=== PATIENT | male | born 1985 | race Caucasian/White ===

== ENCOUNTER 2022-07-07 12:54 | Emergency (ER) | payer MEDICAID, SELFPAY ==
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
[2022-07-07 13:10] VITALS: BP 110/70; BP 114/65; PULSE 118; PULSE 92; RESP 16; TEMP 36.4; O2SAT 96; O2SAT 98; BMI 32.5
[2022-07-07 13:17] VITALS: BP 115/80; PULSE 89; RESP 20; O2SAT 97
[2022-07-07 13:28] LABS: MANUAL DIFF FLAG NO
[2022-07-07 13:31] LABS: Basophils Percent Auto 0.2 % (0-2); Eosinophils Percent Auto 0.3 % (0-4); Hematocrit 36.5 % (42.0-52.0); Hemoglobin 13.3 g/dl (14.0-18.0); Imm Gran Abs Auto 0.02 X10*3/uL (0.00-0.03); Imm Gran Pct Auto 0.2 % (0.0-0.4); Lymphocytes Percent Auto 20.8 % (20-40); Mean Corpuscular HGB Conc 36.4 g/dl (31.0-36.0); Mean Corpuscular Hemoglobin 30.6 pg (27.0-33.0); Mean Corpuscular Volume 83.9 fL (80.0-98.0); Mean Platelet Volume 9.1 fL (9.4-12.4); Monocytes Absolute Auto 1.1 X10*3/uL (0.1-1.2); Monocytes Percent Auto 11.1 % (2-11); Neutrophils Absolute Auto 6.5 x10*3/uL (2.0-8.3); Neutrophils Percent Auto 67.4 % (45-73); Platelet Count 338 X10*3/uL (160-400); Red Blood Count 4.35 X10*6/uL (4.60-5.80); Red Cell Distribution Width 12.3 % (11.0-16.0); White Blood Count 9.6 X10*3/uL (4.8-10.8)
[2022-07-07 13:52] LABS: Alanine Aminotransferase 42 U/L (0-40); Albumin Level 4.6 g/dL (3.5-5.0); Alkaline Phosphatase 67 U/L (39-117); Anion Gap 22 (12-20); Aspartate Amino Transferase 54 U/L (5-37); Bilirubin Total 1.3 mg/dL (0.0-1.0); Blood Urea Nitrogen 29 mg/dL (9-16); Calcium 9.7 mg/dL (8.4-10.2); Carbon Dioxide 18 mmol/L (22-29); Chloride 96 mmol/L (96-108); Estimated Glomerular Filt Rate > 60; Glucose Random 95 mg/dL (60-115); Lipase 12 U/L (8-78); Magnesium 2.1 mg/dL (1.6-2.6); Potassium 3.7 mmol/L (3.3-5.1); Sodium 132 mmol/L (135-145); Total Protein 8.3 g/dL (6.5-8.0)
[2022-07-07 14:02] LABS: Acetaminophen LAB < 1 mcg/mL (<30); Salicylate < 5.0 mg/dL (15-30)
[2022-07-07 14:03] LABS: Ethanol < 10 mg/dL
[2022-07-07 14:08] LABS: COVID-19 Test Negative (Negative)
[2022-07-07] MEDS: iohexoL 350 MG/ML 100 ML INFUS..BTL IV (14:28)
[2022-07-07] MEDS: Diphth,Pertus(ACell),Tet Adult 0.5 ML SYRINGE IM (14:33)
[2022-07-07] MEDS: 0.9 % Sodium Chloride 1,000 ML 999 ML IV ×5 (15:05→21:43)
--- NOTE | 2022-07-07 15:06 | PC.NURSE ---
Critical CPK 0073. Primary RN Dai aware. SHLOMO Ferrari aware
[2022-07-07 15:56] VITALS: BP 101/65; PULSE 79; RESP 16; TEMP 36.6; O2SAT 99
--- NOTE | 2022-07-07 17:07 | PC.NURSE ---
Addendum entered by Grace Edwards 07/07/22 17:21: PATIENT DID AGREE TO HAVE HIS CPK DRAWN AFTER I GIVE HIM A BAG OF POTATO CHIPS . Original Note: PATIENT REFUSED CPK LAB DRAW CARIE ORELLANA AND SHLOMO INFANTE IS AWARE .
[2022-07-07 17:28] VITALS: BP 101/65; PULSE 79; RESP 16; TEMP 36.6; O2SAT 98
[2022-07-07 17:50] LABS: Alanine Aminotransferase 37 U/L (0-40); Alkaline Phosphatase 62 U/L (39-117); Anion Gap 17 (12-20); Aspartate Amino Transferase 47 U/L (5-37); Blood Urea Nitrogen 24 mg/dL (9-16); Calcium 8.4 mg/dL (8.4-10.2); Carbon Dioxide 19 mmol/L (22-29); Chloride 103 mmol/L (96-108); Creatinine Clr Calc Pharmacy 129.1; Estimated Glomerular Filt Rate > 60; Glucose Random 103 mg/dL (60-115); Potassium 3.8 mmol/L (3.3-5.1); Sodium 135 mmol/L (135-145); Total Protein 7.2 g/dL (6.5-8.0)
--- NOTE | 2022-07-07 18:34 | PC.NURSE ---
PATIENT WAS GIVEN MATT MANDI AND SANDWICHES FOR DINNER.
[2022-07-07 19:53] VITALS: BP 107/61; PULSE 73; RESP 16; TEMP 36.7; O2SAT 98
[2022-07-07 20:08] LABS: Appearance Urine Clear; Color Urine Yellow; Glucose Urine UA Negative (Negative); Leukocyte Esterase Urine Negative (Negative); Nitrite Urine Negative (Negative); Specific Gravity - Urine >= 1.030 (1.005-1.025); Urine Blood Negative (Negative); Urine Ketones 40 mg/dL (Negative); Urine Protein Negative (Neg-Trace)
[2022-07-07 20:22] LABS: Amphetamine Screen Urine POSITIVE (Not Detect); Barbiturates, Urine Not Detected (Not Detect); Benzodiazepines Screen Urine Not Detected (Not Detect); Cannabinoid Screen Urine Not Detected (Not Detect); Cocaine Screen Urine POSITIVE (Not Detect); Fentanyl, urine Not Detected (Not Detect); Opiate Screen Urine Not Detected (Not Detect); Phencyclidine Screen Urine Not Detected (Not Detect)
[2022-07-07 20:59] LABS: Anion Gap 15 (12-20); Blood Urea Nitrogen 21 mg/dL (9-16); Calcium 7.9 mg/dL (8.4-10.2); Carbon Dioxide 20 mmol/L (22-29); Chloride 106 mmol/L (96-108); Creatinine Clr Calc Pharmacy 142.9; Estimated Glomerular Filt Rate > 60; Glucose Random 121 mg/dL (60-115); Sodium 137 mmol/L (135-145)
[2022-07-07 21:50] VITALS: BP 112/70; PULSE 73; RESP 16; TEMP 36.6; O2SAT 98
== END 2022-07-07 22:04 ==
PROVIDERS: Physician Assistant; Emergency Provider Internal Medicine
DX: R10.31 Right lower quadrant pain (principal); M62.82 Rhabdomyolysis; L03.114 Cellulitis of left upper limb; S41.112A Laceration without foreign body of left upper arm, initial encounter; S00.11XA Contusion of right eyelid and periocular area, initial encounter; S30.811A Abrasion of abdominal wall, initial encounter; Y09 Assault by unspecified means; F17.200 Nicotine dependence, unspecified, uncomplicated; Z20.822 Contact with and (suspected) exposure to COVID-19; Y93.9 Activity, unspecified; Y92.9 Unspecified place or not applicable; Y99.9 Unspecified external cause status; F14.90 Cocaine use, unspecified, uncomplicated
CPT/HCPCS: 36415; 70450; 70486; 71260; 72125; 74177; 80048; 80053; 80143; 80179; 80307; 81003; 82077; 82550; 83690; 83735; 85025; 87635; 90471; 90715; 96360; 96361; 99284; Q9967